=== PATIENT | female | born 2000 | race Caucasian/White ===

== ENCOUNTER → 2023-10-30 | Outpatient (CLI) | payer OTHER | LOC: LAB 12:30 → LAB SHORT 12:30 | DX: Z34.93 Encounter for supervision of normal pregnancy, unspecified, third trimester (principal) | CPT/HCPCS: 87081; 87150 ==

== ENCOUNTER → 2023-11-16 | Outpatient (CLI) | payer OTHER ==
[~2023-11-16] MED LIST: PRENATAL TABLE1 EAC2 PO
== END ==
LOC: LAB SHORT 11:46 → LAB 11:46
DX: Z34.93 Encounter for supervision of normal pregnancy, unspecified, third trimester (principal); Z3A.38 38 weeks gestation of pregnancy
CPT/HCPCS: 86850; 86900; 86901

== ENCOUNTER → 2023-11-23 | Outpatient (CLI) | payer OTHER ==
[2023-11-26 16:56] LABS: BILE ACID-URSODEOXYCHOLIC ACID 0.3 umol/L (0.0-1.0); BILE ACIDS - CHENODEOXYCHOLIC 0.3 umol/L (0.0-3.4); BILE ACIDS - CHOLIC ACID 0.3 umol/L (0.0-1.9); BILE ACIDS - DEOXYCHOLIC ACID 0.6 umol/L (0.0-2.5); TOTAL BILE ACIDS 1.5 umol/L (0.0-7.0)
== END | disposition home or self-care (01) ==
LOC: LAB 13:11 → LAB SHORT 13:11
PROVIDERS: Family Medicine
DX: O26.643 Intrahepatic cholestasis of pregnancy, third trimester (principal)
CPT/HCPCS: 83789

== ENCOUNTER 2023-12-11 22:43 | Emergency (ER) | payer OTHER ==
[~2023-12-11] VITALS: Ht 154.9 cm; Wt 73.9 kg
[2023-12-11 23:17] LABS: BASOPHILS ABSOLUTE AUTO 0.04 K/mm3 (0.00-0.23); BASOPHILS PERCENT AUTO 0 % (0-2); EOSINOPHILS ABSOLUTE AUTO 0.33 K/mm3 (0.00-0.68); EOSINOPHILS PERCENT AUTO 3 % (0-6); Hematocrit 37.3 % (33.0-51.0); Hemoglobin 11.8 g/dL (11.5-16.0); IMMATURE GRAN ABSOLUTE AUTO 0.02 K/mm3 (0.00-0.10); IMMATURE GRAN PERCENT AUTO 0 % (0-1); LYMPHOCYTES ABSOLUTE AUTO 3.73 K/mm3 (0.84-5.20); LYMPHOCYTES PERCENT AUTO 38 % (21-46); MONOCYTES ABSOLUTE AUTO 0.56 K/mm3 (0.16-1.47); MONOCYTES PERCENT AUTO 6 % (4-13); Mean Corpuscular HGB 24.6 pg (26.0-34.0); Mean Corpuscular HGB Conc 31.6 g/dL (31.5-36.5); Mean Corpuscular Volume 78 fL (80-100); Mean Platelet Volume 12.1 fL (9.1-12.4); NEUTROPHILS ABSOLUTE AUTO 5.09 K/mm3 (1.96-9.15); NEUTROPHILS PERCENT AUTO 52 % (41-73); Platelet Count 289 K/mm3 (150-400); RDW Coefficient Variation 15.2 % (11.7-14.2); RDW Standard Deviation 43.1 fL (35.1-46.3); White Blood Cell Count 9.77 K/mm3 (4.00-11.30)
[2023-12-11 23:32] LABS: Albumin, Blood 3.5 g/dL (3.4-5.0); Bilirubin, Total 0.4 mg/dL (0.1-1.0); Bun/Creatinine Ratio 18.1 (12.0-20.0); Calcium, Blood 9.1 mg/dL (8.5-10.1); Globulin, Blood 3.4 g/dL (2.2-4.0); Potassium, Blood 3.7 mmol/L (3.5-5.5); Total Protein, Blood 6.9 g/dL (6.4-8.2)
[2023-12-12] MEDS ORDERED: Ketorolac Tromethamine 30mg Vial IV ONE (00:35)
[2023-12-12 01:30] VITALS: BP 92/66
== END 2023-12-12 02:30 | disposition home or self-care (01) ==
LOC: ER 22:43
PROVIDERS: Physician Assistant
DX: K80.70 Calculus of gallbladder and bile duct without cholecystitis without obstruction (principal); R07.9 Chest pain, unspecified
CPT/HCPCS: 76705; 80053; 83690; 85025; 96374; 99284; J1885

== ENCOUNTER 2023-12-20 01:48 | Inpatient (IN) | payer OTHER ==
[~2023-12-20] VITALS: Ht 162.6 cm; Wt 74.9 kg
[2023-12-20] VITALS (19 sets, daily range): BP systolic 72–134; BP diastolic 53–90
[2023-12-20] MEDS ORDERED: NS 1,000 ML IV SCH ×2 (05:05→05:35)
[2023-12-20] MEDS ORDERED: CefTRIAXone Sodium 1,000 MG in NS 50 ML IV ONE (05:05)
[2023-12-20] MEDS ORDERED: Ondansetron HCl 2 MG / ML 2ML Vial IV PRN (05:15)
[2023-12-20] MEDS ORDERED: HYDROmorphone HCl/Pf 1MG SYR IV PRN (05:15)
[2023-12-20] MEDS ORDERED: Lactated Ringer's 1,000 ML IV SCH ×3 (05:20→14:15)
[2023-12-20] MEDS ORDERED: Ketorolac Tromethamine 30mg Vial IV ONE (05:35)
[2023-12-20] MEDS ORDERED: Ondansetron HCl 2 MG / ML 2ML Vial IV ONE (05:35)
[2023-12-20 06:49] LABS: Alanine Aminotransfer (ALT/SGP 491 U/L (12-78); Albumin, Blood 3.7 g/dL (3.4-5.0); Albumin/Globulin Ratio 1.1 (0.8-1.8); Alk Phos 204 U/L (50-136); Anion Gap 12 mmol/L (3-11); Aspartate Aminotrans (AST/SGOT 725 U/L (12-37); Bilirubin, Total 0.6 mg/dL (0.1-1.0); Blood Urea Nitrogen 16 mg/dL (8-24); Bun/Creatinine Ratio 16.9 (12.0-20.0); CO2, Blood 25 mmol/L (21-32); Calcium, Blood 8.9 mg/dL (8.5-10.1); Chloride, Blood 109 mmol/L (98-108); Creatinine, Blood 0.95 mg/dL (0.40-1.00); Globulin, Blood 3.3 g/dL (2.2-4.0); Glomerular Filtration Rate 86 (60-); Glucose, Blood 97 mg/dL (70-99); Potassium, Blood 3.8 mmol/L (3.5-5.5); Sodium, Blood 142 mmol/L (136-145)
[2023-12-20 06:51] LABS: BASOPHILS ABSOLUTE AUTO 0.03 K/mm3 (0.00-0.23); BASOPHILS PERCENT AUTO 0 % (0-2); EOSINOPHILS ABSOLUTE AUTO 0.26 K/mm3 (0.00-0.68); EOSINOPHILS PERCENT AUTO 3 % (0-6); Hematocrit 37.3 % (33.0-51.0); Hemoglobin 11.9 g/dL (11.5-16.0); IMMATURE GRAN ABSOLUTE AUTO 0.02 K/mm3 (0.00-0.10); IMMATURE GRAN PERCENT AUTO 0 % (0-1); LYMPHOCYTES ABSOLUTE AUTO 3.39 K/mm3 (0.84-5.20); LYMPHOCYTES PERCENT AUTO 37 % (21-46); MONOCYTES ABSOLUTE AUTO 0.85 K/mm3 (0.16-1.47); MONOCYTES PERCENT AUTO 9 % (4-13); Mean Corpuscular HGB 25.2 pg (26.0-34.0); Mean Corpuscular HGB Conc 31.9 g/dL (31.5-36.5); Mean Corpuscular Volume 79 fL (80-100); Mean Platelet Volume 12.6 fL (9.1-12.4); NEUTROPHILS ABSOLUTE AUTO 4.55 K/mm3 (1.96-9.15); NEUTROPHILS PERCENT AUTO 50 % (41-73); Platelet Count 251 K/mm3 (150-400); RDW Coefficient Variation 16.5 % (11.7-14.2); RDW Standard Deviation 46.8 fL (35.1-46.3); Red Blood Cell Count 4.72 M/mm3 (3.80-5.20)
[2023-12-20] MEDS ORDERED: LORazepam 2 MG/ML 1ML Injection IV ONE ×2 (08:55→12:05)
--- NOTE | 2023-12-20 10:34 | NUR ---
DAD AT BEDSIDE, PATIENT ALERT AND ORIENTED, DENEIS DISTRESS OR PAIN, MEDICATED WITH ZOFRAN, MRI TO BE DONE AT NOON, NPO, CALL LIGHT WITH IN REACH
[2023-12-20] MEDS ORDERED: Indocyanine Green 25 MG Vial IV STA (10:35)
[2023-12-20] MEDS ORDERED: Bupivacaine 0.5% HCl 5 MG/ML 30MLVIAL ONE (14:01)
[2023-12-20] MEDS ORDERED: propofoL 0 ML IV ONE (14:52)
[2023-12-20] MEDS ORDERED: FentaNYL Citrate 50 MCG/ML 2 ML Injection ONE ×2 (14:53→17:22)
[2023-12-20] MEDS ORDERED: CefOXitin Sodium 2,000 MG in NS 50 ML IV ONE (15:25)
[2023-12-20] MEDS ORDERED: Rocuronium Bromide 10 MG/ML 5ML Injection IV ONE ×2 (15:34→17:22)
[2023-12-20] MEDS ORDERED: CefOXitin 2000 mg Vial ONE (15:49)
[2023-12-20] MEDS ORDERED: NS 50 ML IV ONE (15:49)
[2023-12-20] MEDS ORDERED: Scopolamine Hydrobromide Patch TOP ONE (16:45)
--- NOTE | 2023-12-20 17:02 | NUR ---
Patient up to restroom, Ambulate independently. Gait steady.
[2023-12-20] MEDS ORDERED: propofoL 20 ML IV ONE (17:22)
--- NOTE | 2023-12-20 17:32 | NUR ---
FAMILY IN ROOM, PATIENT WAS TAKING INTO SURGERY LATE, RELAYED TO FEED MIXER HELPER
--- NOTE | 2023-12-20 18:05 | NUR ---
REPORTED TO [facility] ICU, PATIENT MOVED TO ICU 4 DUE TO HER HEART BRADYING DOWN PRIOR TO SURGERY, SURGERY HELD, FAMILY BEING INFORMED IN ICU
[2023-12-20] MEDS ORDERED: Atropine Sulfate 0.4 MG/1 ML Vial ONE (18:23)
[2023-12-20] MEDS ORDERED: Atropine Sulfate 0.1 MG/ML 10ML SYR IV PRN (18:40)
--- NOTE | 2023-12-20 18:45 | NUR ---
Pt arrived to ICU 4 from OR at 1800. Transferred to ICU due to bigeminy and bradycardia after induction of anesthesia. Arrived on 15 LPM NRB. SpO2 99%. Pt awakened with OR staff in room. Anesthesiologist Dr Bermudez asks pt if she used vape before procedure, recreational drugs, or medications not prescribed to her and she states no. Pt tearful on realization that surgery was not done. Changed to 6 LPM NC and later titrated down to 4 LPM NC. Coarse crackles in all lung red. Carlin Stinson [employer] notified, as anesthesiologist stated lung red were clear prior to procedure. Pt also has constant cough that she states she did not have prior to procedure. Pt is in ST on ICU arrival, currenty SR with increasing number of PVCs. BP low/normal with stable MAP. Milad PINEDA notified of heart rhtyhm and BP. Pt's father and partner at bedside, okay to discuss health information per pt. Updated on assessment and plan of care.
--- NOTE | 2023-12-20 19:00 | NUR ---
ASSUMED CARE OF PATIENT AT 1900. PT RESTING IN BED WITH FATHER, SO, AND SURGEON AT BEDSIDE. PT ALERT AND ORIENTED X 4. ABLE TO FOLLOW COMMANDS, MAKE PURPOSEFUL MOVEMENTS, AND MAKE NEEDS KNOWN. AFEBRILE AND DENIES PAIN. CONTINOUS CARDIAC MONITORING IN PLACE SHOWS SR WITH HR OF 97, BP 84/65, MAP 73. DENIES CP AND SOB. ON 6LPM O2 VIA NC WITH O2 SATURATION OF 98%. DENIES N/V. SKIN OVERALL INTACT. ORDERS PLACED FOR AUDIO VISUAL EQUIPMENT RENTAL CLERK AND PULM CC CONSULT. HOSPITALIST TO BEDSIDE, SEE SUBSEQUENT ORDERS. CARE CONTINUES.
[2023-12-20 19:42] LABS: Bicarbonate Venous 21.4 mmol/L (24.0-30.0); PCO2 Venous 40.5 mmHg (38-42); pH Blood Venous 7.34 (7.34-7.37)
[2023-12-20 19:43] LABS: Base Excess Venous -3.9 mmol/L
[2023-12-20 20:10] LABS: Magnesium, Blood 2.1 mg/dL (1.6-2.4)
[2023-12-20 20:12] LABS: Calcium, Blood 8.8 mg/dL (8.5-10.1); Creatinine, Blood 0.9 mg/dL (0.40-1.00); Potassium, Blood 3.7 mmol/L (3.5-5.5); Thyroid Stimulating Hormone 4.21 uIU/mL (0.360-4.800)
[2023-12-20 20:28] LABS: Influenza A, PCR NEGATIVE (NEGATIVE); Influenza B, PCR NEGATIVE (NEGATIVE); Resp Syncytial Virus, PCR NEGATIVE (NEGATIVE); SARS-Cov-2 (COVID-19) PCR, MMC NEGATIVE (NEGATIVE)
[2023-12-20] MEDS ORDERED: OxyCODONE 5 mg/Acetamin 325 mg TABLET PO PRN (21:30)
[2023-12-20] MEDS ORDERED: Acetaminophen 500 MG Tab PO PRN (21:30)
[2023-12-20] MEDS ORDERED: Empagliflozin 10 MG TAB PO SCH (21:55)
[2023-12-20] MEDS ORDERED: EPINEPhrine HCl 0.1 MG/ML 10ML SYR XX ONE (22:47)
[2023-12-20] MEDS ORDERED: Atropine Sulfate 0.1 MG/ML 10ML SYR XX ONE (22:47)
[2023-12-21] VITALS (41 sets, daily range): BP systolic 69–126; BP diastolic 55–115
--- NOTE | 2023-12-21 05:01 | NUR ---
SHIFT SUMMARY PT SLEPT T/O MAJORITY OF SHIFT. WHEN AWAKE, ALERT AND ORIENTED X 4. ABLE TO FOLLOW COMMANDS, MAKE PURPOSEFUL MOVEMENTS, AND MAKE NEEDS KNOWN. AFEBRILE. REPORTED ONE EPISODE OF PAIN IN STOMACH + HEADACHE AT A /. MEDICATED PER EMAR WITH GOOD BENEFIT. CONTINOUS CARDIAC MONITORING IN PLACE SINUS KEYANA - SINUS RHYTHM WITH HR IN HIGH 40'S-HIGH 70'S. SBP 80'S-90'S. MAP MAINTAINED > 65. PT RECEIVED ONE DOSE OF JARDIANCE HS PER CARDIOLOGY. PT RECEIVING 1.5 LPM O2 VIA NC WITH O2 SATURATIONS > 92%. PT INADVERTENTLY REMOVED NC WHILE SLEEPING WHICH RESULTED IN BRIEF DESATURATION TO HIGH 80'S, WHICH QUICKLY IMPROVED ONCE NC WAS PLACED BACK IN POSITION. CRACKLES AUSCULATED T/O IN BILATERAL LUNGS, MILDLY IMPROVED FROM START OF SHIFT. NPO WITH FLUID RESTRICTION IN PLACE. TOLERATED SIPS AND PO MEDS WELL. NO BM THIS SHIFT. DENIES N/V. BLADDER SCAN SHOWED 549 mL, PT TO TOILET AND SUCCESSFULLY URINATED WITH 372 POST VOID RESIDUAL. SKIN INTACT. PG TO SHERYL DRAWS AND FLUSHES WELL, PIV TO RFA FLUSHES WELL. SO REMAINED AT BEDSIDE T/O SHIFT. WILL CONTINUE TO MONITOR AND REPORT TO ONCOMING RN.
[2023-12-21 08:03] LABS: BASOPHILS ABSOLUTE AUTO 0.02 K/mm3 (0.00-0.23); BASOPHILS PERCENT AUTO 0 % (0-2); EOSINOPHILS ABSOLUTE AUTO 0.56 K/mm3 (0.00-0.68); EOSINOPHILS PERCENT AUTO 7 % (0-6); Hematocrit 33.2 % (33.0-51.0); Hemoglobin 10.3 g/dL (11.5-16.0); IMMATURE GRAN ABSOLUTE AUTO 0.02 K/mm3 (0.00-0.10); IMMATURE GRAN PERCENT AUTO 0 % (0-1); LYMPHOCYTES ABSOLUTE AUTO 2.18 K/mm3 (0.84-5.20); LYMPHOCYTES PERCENT AUTO 29 % (21-46); MONOCYTES ABSOLUTE AUTO 0.48 K/mm3 (0.16-1.47); MONOCYTES PERCENT AUTO 6 % (4-13); Mean Corpuscular HGB 24.9 pg (26.0-34.0); Mean Corpuscular Volume 80 fL (80-100); Mean Platelet Volume 12.4 fL (9.1-12.4); NEUTROPHILS ABSOLUTE AUTO 4.36 K/mm3 (1.96-9.15); NEUTROPHILS PERCENT AUTO 57 % (41-73); Platelet Count 213 K/mm3 (150-400); RDW Coefficient Variation 16.6 % (11.7-14.2); Red Blood Cell Count 4.13 M/mm3 (3.80-5.20); White Blood Cell Count 7.62 K/mm3 (4.00-11.30)
[2023-12-21 08:23] LABS: Albumin/Globulin Ratio 1.1 (0.8-1.8); Bilirubin, Total 0.6 mg/dL (0.1-1.0); Bun/Creatinine Ratio 9.3 (12.0-20.0); Calcium, Blood 8.6 mg/dL (8.5-10.1); Creatinine, Blood 1.07 mg/dL (0.40-1.00); Globulin, Blood 2.8 g/dL (2.2-4.0); Potassium, Blood 4.1 mmol/L (3.5-5.5); Total Protein, Blood 5.8 g/dL (6.4-8.2)
[2023-12-21] MEDS ORDERED: Enoxaparin 40 MG/0.4 ML SYR SC SCH (09:00)
--- NOTE | 2023-12-21 09:05 | NUR ---
RECEIVED BSR AT 0700 FROM KIMMIE PINK. PT DENIES ANY COMPLAINTS AT THIS TIME. PT IS BREATHING EASIER AND WITHOUT ISSUE. NC @ 1.5L. ABDOMEN TENDER, DENIES NEED FOR PAIN MEDICATION, STATES SHE FEELS HUNGRY. CARDIOLOGY AND SURGERY BOTH ROUNDED SAID OKAY TO TRY EATING, PT TOOK IN SOME JUICE AND SOME JELLO. NEEDS A URINE SAMPLE SENT, PT AWARE.
[2023-12-21 13:12] LABS: U Amphetamine Screen Not Detected; U Barbituate Screen Not Detected; U Benzodiazapine Screen DETECTED; U Buprenorphine Screen Not Detected; U Cannabinoids Screen Not Detected; U Cocaine Screen Not Detected; U Methadone Screen Not Detected; U Methamphetamine Screen Not Detected; U Opiates Screen Not Detected; U Oxycodone Screen DETECTED; U Phencyclidine Screen Not Detected
--- NOTE | 2023-12-21 13:26 | NUR ---
Patient is lying in bed and asleep. Her mother is bedside. Patient awakens when I open the door to her room. She tells me that she had a challenging night but that she is doing much better this day. She explains that she has very strong family and friend support and feels like her spiritual needs are being met at this time. I allow patient to return to resting.
--- NOTE | 2023-12-21 16:00 | NUR ---
ASSUMED CARE OF PT. FAMILY AT BEDSIDE. NO SIGN OF DISTRESS.
--- NOTE | 2023-12-21 19:15 | NUR ---
ASSESSMENT/ASSUMED CARE PT SITTING UP IN BED WITH S.O. AT BEDSIDE. C/O HEADACHE, MED WITH TYLENOL. LUNGS CLEAR ON ROOMAIR. SPO2 97%. RESP EVEN AND NONLABORED. DENIES SOB OR COUGH. HEART RATE REGULAR IN THE 50-60'S WITH OCC PAC'S. DENIES CHEST PAIN OR PRESSURE. ABD SOFT AND NONTENDER. DENIES N/V. PT GIVEN SOUP AND CRACKERS. TALKED WITH PT ABOUT A LITE DIET WITH NO HEAVY FOOD DUE TO PANCREATITIS AND CHOLECYSTITIS. ALSO, REMINDED PT ABOUT FLUID RESTRICTION DUE TO CARDIOMYOPATHY. PT EXPRESSED UNDERSTANDING. PIV TO RIGHT AC SALINE LOCKED, FLUSHED WITHOUT DIFFICULTY. SITE CLEAR. POWER GLIDE TO LEFT UPPER ARM SALINE LOCKED. SITE CLEAR. ABLE TO DRAW BLOOD AND FLUSH WITHOUT DIFFICULTY. NO EDEMA. LINENS CHANGED. PT WANTING TO SHOWER, WILL GET SHOWER READY.
--- NOTE | 2023-12-21 20:01 | NUR ---
SHOWER PT UP TO SHOWER THAN BACK TO BED. LINEN CHANGED. GAIT STEADY. DENIES PAIN AT THIS TIME
[2023-12-22 03:58] VITALS: BP 91/63
--- NOTE | 2023-12-22 05:38 | NUR ---
SHIFT SUMMARY PT SITTING UP IN BED C/O ABD PAIN TO UPPER EPIGASTRIC AREA 10/08. MED WITH PERCOCET. PT RESTED QUIETLY DURING THE NIGHT. VSS. HEART RATE KEYANA 40-60'S WITH PVC'S. S.O. SLEEPING IN THE ROOM. PT UP IN THE ROOM AD ROCKY. SHOWERED DURING THE NIGHT. NO ACUTE CHANGE. REPORT TO ON COMING NURSE
[2023-12-22 07:29] VITALS: BP 113/71
--- NOTE | 2023-12-22 07:30 | NUR ---
Assumed care of pt at 0700. Bedside report received from Sakina BURKS. Pt A&O x 4. Answers questions, follows commands, verbalizes needs. Pleasant and cooperative with care. SB-SR per monitor, rate 50-60 with approx 10 PVCs per minute. SpO2 90% or greater RA. Lungs clear on auscultation. PCU status.
[2023-12-22] MEDS ORDERED: Losartan Potassium 25 MG Tab PO SCH (09:00)
--- NOTE | 2023-12-22 09:32 | NUR ---
Dr Rosario, Jaswinder, and Eb in to see patient. All providers report that patient is okay to go home today. Patient's s/o reports concern that her HR dropped down into the 30s last night while she was sleeping. This RN reviewed rhythm strips. HR dropped into 30s for 4-5 seconds before increasing. Regular MT intervals and no dropped QRS. Family's concern realyed to Dr Rosario who stated this is an acceptable finding and pt remains okay for discharge. Follow up cardiology appointment scheduled for 12/27 at 4:10 (3:50 check in time)- this information given to patient and s/o.
[2023-12-22 10:40] VITALS: BP 110/78
[2023-12-22] MEDS ORDERED: JARDIANCE10 MG PO (13:27)
[2023-12-22] MEDS ORDERED: LOSA25 PO (13:30)
[2023-12-22] MEDS ORDERED: Percocet 5-3251 EACH PO (13:39)
--- NOTE | 2023-12-22 15:44 | NUR ---
Dr San discussed plan of care with patient and s/o prior to discharge. Medications called in to [facility] and written perscription provided to pt for oxycodone/APAP. Scheduled follow up appointments for Dr Ortiz and PCP- Dr Shelton. Called pt's OB, Dr Hernandez, as pt will be seeing her for 6 week post follow up. They stated they will call patient and arrange to see her sooner r/t complication. Arranged for pt to pepper picker Jardiance samples from heart center. Discharge information given to patient and s/o Tyron. Both deny questions at time of discharge.
== END 2023-12-22 14:25 | disposition home or self-care (01) | DRG 561 ==
LOC: ER 01:48 → ICUE 01:49 → MEDS 01:49 → SURS 01:49 → MEDS 06:44 → ICUE 18:28
PROVIDERS: Internal Medicine; Internal Medicine Cardiovascular Disease; Internal Medicine Critical Care Medicine; Nurse Practitioner Acute Care; ADMIT Surgery
DX: O99.63 Diseases of the digestive system complicating the puerperium (principal); K85.90 Acute pancreatitis without necrosis or infection, unspecified; J96.91 Respiratory failure, unspecified with hypoxia; I42.9 Cardiomyopathy, unspecified; O26.63 Liver and biliary tract disorders in the puerperium; E78.79 Other disorders of bile acid and cholesterol metabolism; O99.53 Diseases of the respiratory system complicating the puerperium; K76.89 Other specified diseases of liver; O99.893 Other specified diseases and conditions complicating puerperium; R00.1 Bradycardia, unspecified; O99.43 Diseases of the circulatory system complicating the puerperium; O99.285 Endocrine, nutritional and metabolic diseases complicating the puerperium; E86.0 Dehydration; Z53.09 Procedure and treatment not carried out because of other contraindication
CPT/HCPCS: 0241U; 71045; 74181; 76705; 80048; 80053; 82803; 83605; 83690; 83735; 83880; 84443; 84484; 85025; 93005; 93010; 93306; 94762; 96361; 96374; 96375; 96376; 99285-25; A9270; C1751; G0378; J0461; J0694; J1170; J1650; J1885; J2060; J2405; J2704; J3010; J7030; J7120

== ENCOUNTER 2023-12-30 01:14 | Inpatient (IN) | payer OTHER ==
[~2023-12-30] VITALS: Ht 154.9 cm; Wt 73.5 kg
[~2023-12-30 01:14] MED LIST changes: +JARDIANCE10 MG PO; +LOSA25 PO; +Percocet 5-3251 EACH PO
[2023-12-30] MEDS ORDERED: URSODIOL250 MG PO (01:38)
[2023-12-30 02:46] LABS: BASOPHILS ABSOLUTE AUTO 0.04 K/mm3 (0.00-0.23); BASOPHILS PERCENT AUTO 0 % (0-2); EOSINOPHILS ABSOLUTE AUTO 0.35 K/mm3 (0.00-0.68); EOSINOPHILS PERCENT AUTO 3 % (0-6); Hematocrit 41.4 % (33.0-51.0); Hemoglobin 13.3 g/dL (11.5-16.0); IMMATURE GRAN ABSOLUTE AUTO 0.04 K/mm3 (0.00-0.10); IMMATURE GRAN PERCENT AUTO 0 % (0-1); LYMPHOCYTES ABSOLUTE AUTO 2.16 K/mm3 (0.84-5.20); LYMPHOCYTES PERCENT AUTO 15 % (21-46); MONOCYTES ABSOLUTE AUTO 0.94 K/mm3 (0.16-1.47); MONOCYTES PERCENT AUTO 7 % (4-13); Mean Corpuscular HGB 25.6 pg (26.0-34.0); Mean Corpuscular HGB Conc 32.1 g/dL (31.5-36.5); Mean Corpuscular Volume 80 fL (80-100); Mean Platelet Volume 12.5 fL (9.1-12.4); NEUTROPHILS ABSOLUTE AUTO 10.67 K/mm3 (1.96-9.15); NEUTROPHILS PERCENT AUTO 75 % (41-73); Platelet Count 244 K/mm3 (150-400); RDW Coefficient Variation 16.4 % (11.7-14.2); RDW Standard Deviation 47.4 fL (35.1-46.3)
[2023-12-30] MEDS ORDERED: HYDROmorphone HCl/Pf 1MG SYR IV ONE ×2 (03:00→03:20)
[2023-12-30] MEDS ORDERED: D5W-NS 1,000 ML IV SCH (03:05)
[2023-12-30] MEDS ORDERED: Ketorolac Tromethamine 30mg Vial IV ONE (03:05)
[2023-12-30 03:07] LABS: Alanine Aminotransfer (ALT/SGP 333 U/L (12-78); Albumin/Globulin Ratio 1.2 (0.8-1.8); Alk Phos 212 U/L (50-136); Anion Gap 13 mmol/L (3-11); Aspartate Aminotrans (AST/SGOT 350 U/L (12-37); Bilirubin, Total 0.6 mg/dL (0.1-1.0); Blood Urea Nitrogen 22 mg/dL (8-24); Bun/Creatinine Ratio 25.8 (12.0-20.0); CO2, Blood 23 mmol/L (21-32); Calcium, Blood 9.5 mg/dL (8.5-10.1); Chloride, Blood 110 mmol/L (98-108); Creatinine, Blood 0.85 mg/dL (0.40-1.00); Globulin, Blood 3.2 g/dL (2.2-4.0); Glomerular Filtration Rate 99 (60-); Glucose, Blood 129 mg/dL (70-99); Potassium, Blood 4.2 mmol/L (3.5-5.5); Sodium, Blood 142 mmol/L (136-145); Total Protein, Blood 7.2 g/dL (6.4-8.2)
[2023-12-30] MEDS ORDERED: NS 1,000 ML IV SCH (05:25)
[2023-12-30] MEDS ORDERED: Ondansetron HCl 2 MG / ML 2ML Vial IV PRN (05:30)
[2023-12-30] MEDS ORDERED: HYDROmorphone HCl/Pf 1MG SYR IV PRN (05:30)
[2023-12-30] MEDS ORDERED: HYDROmorphone HCl/Pf 1MG SYR ONE (05:51)
[2023-12-30] MEDS ORDERED: NS 1,000 ML IV ONE (06:02)
[2023-12-30 10:40] VITALS: BP 84/75
[2023-12-30] MEDS ORDERED: CARV3.125 PO (10:50)
[2023-12-30 10:57] VITALS: BP 110/63
[2023-12-30] MEDS ORDERED: Carvedilol 3.125 MG Tab PO SCH (11:20)
[2023-12-30] MEDS ORDERED: Ursodiol 300 MG Cap PO SCH ×2 (11:20→18:00)
[2023-12-30] MEDS ORDERED: Metoclopramide HCl 5MG / ML 2ML Vial IV ONE (12:00)
[2023-12-30] MEDS ORDERED: HYDROmorphone HCl 2 MG Tab PO PRN (12:05)
[2023-12-30 12:26] VITALS: BP 106/74
[2023-12-30 16:48] VITALS: BP 98/73
--- NOTE | 2023-12-30 17:06 | NUR ---
SHIFT SUMMARY PT REMAINS ALERT AND ORIENTED. BP STABLE. HR REMAINS NSR WITH FREQUENT PVCs. PT COMPLAINS OF PAIN TO ABD THROUGHOUT SHIFT AND MEDICATED PER EMAR. PT COMPLAINED OF NAUSEA AT TIMES THAT WAS RELEIVED WITH MEDICATION ADMINISTRATION. NS INFUSING PER ORDERS. PT REMAINS NPO. WILL REPORT OFF TO ONCOMING RN
[2023-12-30 19:37] VITALS: BP 108/77
[2023-12-30] MEDS ORDERED: Empagliflozin 10 MG TAB PO SCH (21:00)
[2023-12-30 23:00] VITALS: BP 102/61
[2023-12-31 03:26] VITALS: BP 108/77
[2023-12-31 03:44] LABS: BASOPHILS ABSOLUTE AUTO 0.03 K/mm3 (0.00-0.23); BASOPHILS PERCENT AUTO 0 % (0-2); EOSINOPHILS ABSOLUTE AUTO 0.31 K/mm3 (0.00-0.68); EOSINOPHILS PERCENT AUTO 5 % (0-6); Hemoglobin 11.3 g/dL (11.5-16.0); IMMATURE GRAN ABSOLUTE AUTO 0.01 K/mm3 (0.00-0.10); IMMATURE GRAN PERCENT AUTO 0 % (0-1); LYMPHOCYTES ABSOLUTE AUTO 2.05 K/mm3 (0.84-5.20); LYMPHOCYTES PERCENT AUTO 30 % (21-46); MONOCYTES ABSOLUTE AUTO 0.53 K/mm3 (0.16-1.47); MONOCYTES PERCENT AUTO 8 % (4-13); Mean Corpuscular HGB 25.2 pg (26.0-34.0); Mean Corpuscular HGB Conc 30.5 g/dL (31.5-36.5); Mean Corpuscular Volume 82 fL (80-100); Mean Platelet Volume 12.4 fL (9.1-12.4); NEUTROPHILS ABSOLUTE AUTO 3.82 K/mm3 (1.96-9.15); NEUTROPHILS PERCENT AUTO 57 % (41-73); Platelet Count 210 K/mm3 (150-400); RDW Coefficient Variation 16.9 % (11.7-14.2); RDW Standard Deviation 50.7 fL (35.1-46.3); Red Blood Cell Count 4.49 M/mm3 (3.80-5.20); White Blood Cell Count 6.75 K/mm3 (4.00-11.30)
[2023-12-31 04:04] LABS: Albumin, Blood 3.4 g/dL (3.4-5.0); Albumin/Globulin Ratio 1.3 (0.8-1.8); Bilirubin, Total 0.4 mg/dL (0.1-1.0); Bun/Creatinine Ratio 14.5 (12.0-20.0); Calcium, Blood 9.2 mg/dL (8.5-10.1); Creatinine, Blood 0.89 mg/dL (0.40-1.00); Globulin, Blood 2.6 g/dL (2.2-4.0); Potassium, Blood 4.4 mmol/L (3.5-5.5)
[2023-12-31] MEDS ORDERED: Mag Sulfate 1 GM/D5% 100ML 100 ML IV ONE (04:30)
--- NOTE | 2023-12-31 05:14 | NUR ---
SHIFT SUMMARY- PERSITENT PAIN, BIGEMINY RHYTHM NEURO: WNL A/OX4 CARDIAC: BIGEMINY RHYTHM. UP TO 45 PVC'S PER MINUTE. PROLONGED QT OF .45 WHEN CHECKED AGAIN AROUND 0400. 1G MAG GIVEN. RHYTHM IMPROVED DURING MAG ADMINISTRATION- NO LEVELS DRAWN. INCREASE IN ECTOPY WHEN LYING ON LEFT SIDE. NO SIGNS OF ACROCYANOSIS. NO JVD. NO COMPLAINTS OF CHEST PAIN OR SHORTNESS OF BREATH. PT STATES FEET FEEL SWOLLEN BUT NO PITTING EDEMA NOTED AT THIS TIME. LUNGS: CLEAR AUSCULTATION IN ALL ANAYA. ON RA. PT EDUCATED ON RISK OF PULMONARY EDEMA D/T CARDIAC FUNCTION. GI/: PT REPORTS NAUSEA. PRN ZOFRAN GIVEN DURING MAG ADMINISTRATION D/T PROLONGED QT. PERSISTENT UPPERGASTRIC PAIN, NOT ENTIRELY RESOLVED WITH THE DILAUDID PER PT. PT STATES THEY HAVE BEEN TO THE ER ABOUT FIVE TIMES IN THE LAST TWO WEEKS FOR VARYING DEGREES OF ABDOMINAL PAIN. SEE CT RESULTS FOR ILEUS CONCERNS. NO BOWEL CARE YET ORDERED. PT EDUCATED ON RISK OF CONSTIPATION. PT REMAINS NPO WITH ONLY ICE CHIPS. PT CONSIDERING REQUESTING TRANSFER TO [facility]IAC RISK AND UNRESOLVED/RECURRENT ABDOMINAL ISSUES.
[2023-12-31] MEDS ORDERED: Ursodiol 300 MG Cap PO SCH (09:00)
[2023-12-31] MEDS ORDERED: Losartan Potassium 50 MG Tab PO SCH (09:00)
[2023-12-31] MEDS ORDERED: Carvedilol 3.125 MG Tab PO SCH (09:00)
[2023-12-31] MEDS ORDERED: HYDROmorphone HCl 2 MG Tab PO PRN (09:15)
[2023-12-31 11:05] VITALS: BP 122/84
[2023-12-31 13:24] VITALS: BP 106/76
[2023-12-31] MEDS ORDERED: Lactated Ringer's 1,000 ML IV SCH (13:57)
[2023-12-31 15:44] VITALS: BP 105/68
--- NOTE | 2023-12-31 18:20 | NUR ---
DR WEI IN TO SEE PATIENT TODAY, REPEAT ECHO WAS PERFORMED, THERE WAS A LARGE IMPROVEMENT IN EF SINCE LAST ECHO [address] WEI HAS BEEN IN CONTACT WITH [facility] AND PT IS ON WAITLIST FOR COBRA TRANSFER TO [facility] FOR [facility]. PT HAS REQUIRED A FREQUENT PAIN MANAGEMENT, DILAUDID ORAL DOSE WAS INCREASED THIS MORNING. PT IS TOLERATING ALTERNATING ORAL AND IV DILAUDID WHICH HAS CONTROLLED PAIN MODERATELY. IV FLUIDS WERE ABLE TO BE RESUMED TODAY AFTER REPEAT ECHO SHOWED IMPROVED EF. PT'S DIET HAS BEEN ADVANCED TO FULL LIQUID TODAY WHICH SHE IS TOLERATING WELL, PT IS STRONGLY ENCOURAGED TO EAT SLOWLY. SHE IS TAKING IN PO FLUIDS WELL IN SMALL AMOUNTS. PT AND FAMILY HAVE BEEN UPDATED ON PEDNING COBRA TRANSFER. PT WAS SEEN THIS AM BY RAFAELA FROM CASE MANAGEMENT, DR ZABALA, DR GUIDRY ALONG WITH DR WEI. PT WAS TREATED WITH ZOFRAN AT THE END OF THE DAY PT REPORTED MILD NAUSEA AT DINNER TIME, QT WAS MEASURED AT .38 PRIOR TO ADMISSION BY [facility]
[2023-12-31 20:24] VITALS: BP 114/74
[2023-12-31] MEDS ORDERED: Bisacodyl 10 MG Supp PR PRN (22:05)
[2023-12-31] MEDS ORDERED: Magnesium Hydroxide Conc 10 ML UDC PO PRN (22:05)
[2023-12-31 23:02] VITALS: BP 110/77
[2024-01-01] VITALS (7 sets, daily range): BP systolic 100–113; BP diastolic 59–82
[2024-01-01 03:50] LABS: BASOPHILS ABSOLUTE AUTO 0.03 K/mm3 (0.00-0.23); BASOPHILS PERCENT AUTO 0 % (0-2); EOSINOPHILS ABSOLUTE AUTO 0.36 K/mm3 (0.00-0.68); EOSINOPHILS PERCENT AUTO 5 % (0-6); Hematocrit 36.7 % (33.0-51.0); Hemoglobin 11.2 g/dL (11.5-16.0); IMMATURE GRAN ABSOLUTE AUTO 0.01 K/mm3 (0.00-0.10); IMMATURE GRAN PERCENT AUTO 0 % (0-1); LYMPHOCYTES ABSOLUTE AUTO 1.86 K/mm3 (0.84-5.20); LYMPHOCYTES PERCENT AUTO 23 % (21-46); MONOCYTES ABSOLUTE AUTO 0.79 K/mm3 (0.16-1.47); MONOCYTES PERCENT AUTO 10 % (4-13); Mean Corpuscular HGB 24.8 pg (26.0-34.0); Mean Corpuscular HGB Conc 30.5 g/dL (31.5-36.5); Mean Corpuscular Volume 81 fL (80-100); Mean Platelet Volume 11.8 fL (9.1-12.4); NEUTROPHILS ABSOLUTE AUTO 5.02 K/mm3 (1.96-9.15); NEUTROPHILS PERCENT AUTO 62 % (41-73); Platelet Count 213 K/mm3 (150-400); RDW Coefficient Variation 16.4 % (11.7-14.2); RDW Standard Deviation 48.8 fL (35.1-46.3); Red Blood Cell Count 4.52 M/mm3 (3.80-5.20); White Blood Cell Count 8.07 K/mm3 (4.00-11.30)
[2024-01-01 04:15] LABS: Albumin, Blood 3.4 g/dL (3.4-5.0); Albumin/Globulin Ratio 1.2 (0.8-1.8); Bilirubin, Total 0.3 mg/dL (0.1-1.0); Bun/Creatinine Ratio 9.9 (12.0-20.0); Calcium, Blood 9.5 mg/dL (8.5-10.1); Creatinine, Blood 0.91 mg/dL (0.40-1.00); Globulin, Blood 2.9 g/dL (2.2-4.0); Magnesium, Blood 1.9 mg/dL (1.6-2.4); Total Protein, Blood 6.3 g/dL (6.4-8.2)
--- NOTE | 2024-01-01 04:29 | NUR ---
SHIFT SUMMARY NEURO: WNL CARDIAC: ECTOPY STILL NOTED, BUT LESS FREQUENT, MAG LEVEL IN PROCESS. QT NOW .37. AFEBRILE. LUNGS: CLEAR THROUGHOUT AUSCULTATION. PT STATES SHARP PAIN ON LEFT SIDE WITH INSPIRATION. PT ON 1L OXYMASK WHILE SLEEPING. GI/: PT HAS INTERMITTENT NAUSEA, MANAGED WITH ZOFRAN. NO BM THIS SHIFT, PRUNE JUICE GIVEN AND BOWEL CARE ORDERED. PT DESCRIBES RADIATING PAIN FROM LEFT SIDE BUT REPORTS OVERALL FEELING BETTER.
[2024-01-01] MEDS ORDERED: Docusate Sodium 100 MG Cap PO SCH (09:00)
[2024-01-01] MEDS ORDERED: Sennosides 8.6 MG Tab PO SCH (09:00)
[2024-01-01] MEDS ORDERED: Losartan Potassium 25 MG Tab PO SCH (09:00)
--- NOTE | 2024-01-01 18:21 | NUR ---
SHIFT SUMMARY: PT CONTINUES A&Ox4, ANSWERS QUESTIONS APPROPRIATELY, COOPERATIVE W/CARE. RESPIRATIONS EVEN AND UNLABORED, O2 SATS >95% ON RA. PT DENIES CP, SR W/FREQUENT PVCs/TRIGEMINY, RATE 70s-80s. PT W/FREQUENT COMPLAINT OF L ABDOMINAL, BILATERAL SIDE, AND OCCASIONAL LOW BACK PAIN. PT MEDICATED FOR C/O PAIN AND NAUSEA PER EMAR. PT TOLERATING FOOD IN SMALL AMOUNTS W/OUT MUCH CHANGE TO DISCOMFORT. SB ASSIST FOR LINE MANAGEMENT. FLUIDS INFUSING PER ORDERS. WAITLIST FOR COBRA TRANSFER, [facility] UPDATED THIS SHIFT W/NO BED AVAILABILITY.
[2024-01-02 04:00] VITALS: BP 118/84
[2024-01-02] MEDS ORDERED: Mag Sulfate 1 GM/D5% 100ML 100 ML IV ONE (04:00)
[2024-01-02 04:03] LABS: BASOPHILS ABSOLUTE AUTO 0.03 K/mm3 (0.00-0.23); BASOPHILS PERCENT AUTO 1 % (0-2); EOSINOPHILS ABSOLUTE AUTO 0.29 K/mm3 (0.00-0.68); EOSINOPHILS PERCENT AUTO 4 % (0-6); Hematocrit 36.4 % (33.0-51.0); Hemoglobin 11.4 g/dL (11.5-16.0); IMMATURE GRAN ABSOLUTE AUTO 0.02 K/mm3 (0.00-0.10); IMMATURE GRAN PERCENT AUTO 0 % (0-1); LYMPHOCYTES ABSOLUTE AUTO 2.17 K/mm3 (0.84-5.20); LYMPHOCYTES PERCENT AUTO 33 % (21-46); MONOCYTES ABSOLUTE AUTO 0.67 K/mm3 (0.16-1.47); MONOCYTES PERCENT AUTO 10 % (4-13); Mean Corpuscular HGB 25.1 pg (26.0-34.0); Mean Corpuscular HGB Conc 31.3 g/dL (31.5-36.5); Mean Corpuscular Volume 80 fL (80-100); Mean Platelet Volume 11.7 fL (9.1-12.4); NEUTROPHILS ABSOLUTE AUTO 3.46 K/mm3 (1.96-9.15); NEUTROPHILS PERCENT AUTO 52 % (41-73); Platelet Count 209 K/mm3 (150-400); RDW Coefficient Variation 16.5 % (11.7-14.2); RDW Standard Deviation 48.3 fL (35.1-46.3); Red Blood Cell Count 4.54 M/mm3 (3.80-5.20); White Blood Cell Count 6.64 K/mm3 (4.00-11.30)
[2024-01-02 04:34] LABS: Albumin, Blood 3.2 g/dL (3.4-5.0); Albumin/Globulin Ratio 1.1 (0.8-1.8); Bilirubin, Total 0.4 mg/dL (0.1-1.0); Bun/Creatinine Ratio 7.1 (12.0-20.0); Calcium, Blood 9.6 mg/dL (8.5-10.1); Creatinine, Blood 0.99 mg/dL (0.40-1.00); Globulin, Blood 2.9 g/dL (2.2-4.0); Potassium, Blood 4.5 mmol/L (3.5-5.5); Total Protein, Blood 6.1 g/dL (6.4-8.2)
--- NOTE | 2024-01-02 05:43 | NUR ---
SHIFT SUMMARY- PT VISUALLY APPEARS IMPROVED NEURO: WNL CARDIAC: ECTOPY STILL NOTED, BUT LESS FREQUENT, 1G MAG GIVEN TONGIHT. LUNGS: CLEAR THROUGHOUT AUSCULTATION. PT STATES SHARP PAIN ON LEFT SIDE WITH INSPIRATION. PT ON 1L OXYMASK WHILE SLEEPING. GI/: PT HAS INTERMITTENT NAUSEA, MANAGED WITH ZOFRAN. NO BM THIS SHIFT, BOWEL CARE GIVEN. PT DESCRIBES RADIATING PAIN FROM LEFT SIDE BUT REPORTS OVERALL FEELING BETTER. PT STATED THEY WILL CONSIDER ANOTHER FACILITY FOR TRANSFER SUCH [facility] IF [facility] IS UNAVAILABLE.
[2024-01-02 07:36] VITALS: BP 111/69
[2024-01-02 12:16] VITALS: BP 104/69
[2024-01-02 16:35] VITALS: BP 111/78
[2024-01-02 17:11] VITALS: BP 111/78
--- NOTE | 2024-01-02 18:10 | NUR ---
SHIFT SUMMARY/TRANSFER PENDING: PT CONTINUES A&Ox4, COOPERATIVE W/CARE, ABLE TO MAKE NEEDS KNOWN. LS CLEAR, DENIES SOB, O2 SATS >95% ON RA WHILE AWAKE, 1 L PRN WHILE SLEEPING. PT DENIES CP, SB/SR ON MONITOR W/RATE 50s-60s, LESS FREQUENT PVCs. NO SIGNIFICANT CHANGE TO PAIN SYMPTOMS, BUT PT REQUESTED PAIN MEDICATION LESS FREQUENTLY THIS SHIFT. PT ALSO TOLERATED MORE FOOD/PO INTAKE THIS SHIFT. FLUIDS CONTINUE TO INFUSE PER ORDERS. PT HAS BEEN ACCEPTED TO [facility], PENDING TRANSFER AT THIS TIME.
--- NOTE | 2024-01-02 19:18 | NUR ---
UPDATE: REPORT HAS BEEN GIVEN TO MINESH AT [facility]. PT PENDING TRANSFER, WAITING FOR EMS TRANSPORT. REPORT TO KIMMIE MURPHY TO ASSUME CARE OF PT UNTIL TRANSFER CREW ARRIVES.
[2024-01-02 19:42] VITALS: BP 124/74
--- NOTE | 2024-01-02 20:00 | NUR ---
TRANSPORT SUMMARY REPORT CALLED TO RN TO [facility] DAY[facility]. [facility] ARRIVED TO TRANSPORT PT AT 1930, REPORT GIVEN TO HEEL COVER SPLITTER. PT LEFT WITH ALL PERSONAL BELONGINGS. PER [facility] UPON TRANSFER.
== END 2024-01-02 19:38 | disposition short-term general hospital (02) | DRG 776 ==
LOC: ER 01:14 → ERHOLD 05:25 → PCU 10:30
PROVIDERS: Emergency Medicine; Family Medicine; Student in an Organized Health Care Education/Training Program; ADMIT Internal Medicine
DX: O99.63 Diseases of the digestive system complicating the puerperium (principal); K85.90 Acute pancreatitis without necrosis or infection, unspecified; O90.3 Peripartum cardiomyopathy; K80.20 Calculus of gallbladder without cholecystitis without obstruction; Z88.8 Allergy status to other drugs, medicaments and biological substances; Z79.899 Other long term (current) drug therapy
CPT/HCPCS: 36415; 71260; 74177; 80053; 83605; 83690; 83735; 84484; 85025; 93005; 93010; 93308; 93321; 96374; 96375; 99285-25; A9270; J1170; J1885; J2405; J2765; J3475; J7030; J7042; J7120; Q9967

== ENCOUNTER → 2024-01-11 | Outpatient (CLI) | payer OTHER ==
[~2024-01-11] MED LIST changes: +CARV3.125 PO; +URSODIOL250 MG PO
[2024-01-11 17:24] LABS: BASOPHILS ABSOLUTE AUTO 0.04 K/mm3 (0.00-0.23); BASOPHILS PERCENT AUTO 1 % (0-2); EOSINOPHILS ABSOLUTE AUTO 0.34 K/mm3 (0.00-0.68); EOSINOPHILS PERCENT AUTO 4 % (0-6); Hematocrit 36.6 % (33.0-51.0); Hemoglobin 11.8 g/dL (11.5-16.0); IMMATURE GRAN ABSOLUTE AUTO 0.01 K/mm3 (0.00-0.10); IMMATURE GRAN PERCENT AUTO 0 % (0-1); LYMPHOCYTES ABSOLUTE AUTO 2.57 K/mm3 (0.84-5.20); LYMPHOCYTES PERCENT AUTO 30 % (21-46); MONOCYTES ABSOLUTE AUTO 0.63 K/mm3 (0.16-1.47); MONOCYTES PERCENT AUTO 7 % (4-13); Mean Corpuscular HGB 25.5 pg (26.0-34.0); Mean Corpuscular HGB Conc 32.2 g/dL (31.5-36.5); Mean Corpuscular Volume 79 fL (80-100); Mean Platelet Volume 12.8 fL (9.1-12.4); NEUTROPHILS ABSOLUTE AUTO 4.89 K/mm3 (1.96-9.15); NEUTROPHILS PERCENT AUTO 58 % (41-73); Platelet Count 350 K/mm3 (150-400); RDW Coefficient Variation 16.5 % (11.7-14.2); RDW Standard Deviation 47.3 fL (35.1-46.3); Red Blood Cell Count 4.62 M/mm3 (3.80-5.20); White Blood Cell Count 8.48 K/mm3 (4.00-11.30)
[2024-01-11 19:18] LABS: Albumin, Blood 3.8 g/dL (3.4-5.0); Albumin/Globulin Ratio 1.2 (0.8-1.8); Bilirubin, Total 0.3 mg/dL (0.1-1.0); Bun/Creatinine Ratio 21.3 (12.0-20.0); Creatinine, Blood 1.08 mg/dL (0.40-1.00); Globulin, Blood 3.1 g/dL (2.2-4.0); Total Protein, Blood 6.9 g/dL (6.4-8.2)
== END ==
LOC: LAB 16:06 → LAB SHORT 16:06
PROVIDERS: Family Medicine
DX: K85.10 Biliary acute pancreatitis without necrosis or infection (principal)
CPT/HCPCS: 80053; 82150; 83690; 85025

== ENCOUNTER → 2025-03-31 | Outpatient (CLI) | payer OTHER | LOC: LAB SHORT 13:31 → LAB 13:31 | DX: N39.0 Urinary tract infection, site not specified (principal) | CPT/HCPCS: 87086 ==